=== PATIENT | female | born 1990 | race Two or more races ===

== ENCOUNTER 2024-08-07 17:27 | Emergency (ER) | payer MEDICAID, SELFPAY ==
[2024-08-07 17:28] VITALS: BMI 30.5
[2024-08-07 17:59] VITALS: BP 130/87; PULSE 60; RESP 18; TEMP 36.9; O2SAT 99
--- NOTE | 2024-08-07 18:03 | XR_ITS ---
Examination: Abdomen sonogram, Limited Date and time of exam: August 07, 2024 1959 hours INDICATIONS: Right upper abdominal pain radiating to the back Technique: Real-time stapleton scale transabdominal sonographic images of the upper abdomen obtained. Findings: Multiple gallstones Gallbladder wall is thickened 0.55 cm Common bile duct 0.3 cm no stones Pancreatic head 2.6 cm Liver 12.1 cm no focal liver lesions Normal hepatopedal portal venous flow Patent IVC IMPRESSION: Cholelithiasis, suspicious for cholecystitis, recommend HIDA scan or MRCP follow-up
[2024-08-07 18:35] LABS: Basophils % (Auto) 0 % (0-2.5); Eosinophils % (Auto) 0 % (0-10); Hematocrit 34.7 % (36.0-46.0); Hemoglobin 11.7 g/dL (12.0-16.0); Immature Granulocytes % (Auto) 0 % (0-0); Immature Granulocytes Auto 0.03 Thou/mm3 (0.00-0.00); Lymphocytes # (Auto) 1.2 Thou/mm3 (1.0-4.8); Lymphocytes % (Auto) 12 % (10-50); Mean Corpuscular HGB Conc 33.7 g/dl (31.0-37.0); Mean Corpuscular Hemoglobin 27.1 pg (25.0-35.0); Mean Corpuscular Volume 80 fL (80-100); Monocytes # (Auto) 0.4 Thou/mm3 (0.0-0.8); Monocytes % (Auto) 4 % (0-12); Neutrophils # (Auto) 8.5 Thou/mm3 (1.8-7.7); Neutrophils % (Auto) 83 % (37-80); Nucleated Red Blood Cell % 0 /100 WBC (0); Platelet Count 303 Thou/mm3 (140-440); RDW Standard Deviation 46.1 fL (36.4-46.3); Red Blood Count 4.32 Miln/mm3 (4.00-5.20); White Blood Count 10.2 Thou/mm3 (3.6-11.0)
[2024-08-07 18:45] LABS: Alanine Aminotransferase < 7 U/L (10-49); Albumin, Serum 4.5 gm/dL (3.5-5.0); Albumin/Globulin Ratio 1.6 (1.2-2.2); Alkaline Phosphatase 76 U/L (46-116); Anion Gap 11 (7-16); Aspartate Amino Transferase 16 U/L (0-34); BUN/Creatinine Ratio 14 Ratio (12-20); Bilirubin,Total 0.4 mg/dL (0.3-1.2); Blood Urea Nitrogen 10 mg/dL (9-23); Carbon Dioxide 22.1 mMol/L (20.0-31.0); Chloride 104 mMol/L (98-107); Creatinine (Component) 0.7 mg/dL (0.6-1.3); Estimated Creatinine Clearance 81.7 mL/min (>60); Globulin 2.9 gm/dL (2.3-3.5); Glucose 126 mg/dL (74-106); Lipase 39 U/L (12-53); Osmolality,Calculated 274 (275-295); Potassium 3.9 mMol/L (3.4-5.1); Sodium 137 mMol/L (136-145); Total Protein 7.4 gm/dL (5.7-8.2); eGFR > 60 See Note
[2024-08-07 18:47] LABS: Collection Type, Urine Clean Catch
[2024-08-07 18:57] LABS: Bilirubin,Urine Negative (Negative); Blood,Urine 2+ (Negative); Clarity,Urine Clear (Clear/Hazy); Color,Urine Lt-Yellow (Lt Yel-Yel); Culture Indicated,Urine Not Indicated; Glucose, Urine Negative (Negative); Ketones,Urine 4+ (Negative); Leukocyte Esterase,Urine Negative (Negative); Nitrite,Urine Negative (Negative); Protein,Urine Trace (Neg - Trace); RBC,Urine 32 /hpf (0-3); Specific Gravity,Urine 1.033 (1.001-1.035); Squamous Epithelial Cell,Urine 11 /hpf (0-5); Urobilinogen,Urine Negative mg/dL (0.0-1.0); WBC,Urine 2 /hpf (0-5)
[2024-08-07] MEDS: HYDROcodone/APAP 5/325 TABLET 1 TAB PO (19:07)
[2024-08-07] MEDS: METOCLOPRAMIDE 5 MG TABLET 10 MG PO (19:07)
[2024-08-07 19:16] LABS: HCG Qualitative,Urine Negative
--- NOTE | 2024-08-07 21:39 | EDNOTE_ITS ---
ED General RME/HPI General Chief complaint: Abdominal Pain Stated complaint: ABD PAIN RADIATING TO BACK Time Seen by Provider: 08/07/24 17:46 Arrival date/time: 08/07/24 17:27 CC: Right upper quadrant abdominal pain with radiation to the back HPI onset this afternoon but does have prior episodes in the past. The patient has been seen by PCP and has been started on famotidine for the same events. Patient denies nausea vomiting or diarrhea. No other complaints at this time. Related Data Previous Rx's ?Medication ?Instructions ?Recorded meloxicam 7.5 mg tablet 7.5 mg PO QDAY #10 tabs 07/20 ondansetron 4 mg disintegrating 4 mg PO Q8H #10 tabs 0 08/07/24 tablet Allergies Allergy/AdvReac Type Severity Reaction Status Date / Time No Known Allergies Allergy Verified 08/07/24 17:28 Review of Systems Review of Systems Narrative Review of Systems: GEN: No fever, no chills, no weight loss EYES: No discharge, no visual changes, no pain HEENT: No ear pain, no congestion, no sore throat PULM: No shortness of breath, no cough, no congestion CV: No chest pain, no dyspnea on exertion, no palpitations GI: No nausea, no vomiting, no diarrhea, + pain, no constipation : No frequency, no urgency, no dysuria MUSC/SKEL: No joint pain, no back pain SKIN: No rash PSYCH: No hallucinations, no depression HEME/LYMPH: No easy bleeding or bruising tendencies NEURO: No weakness, no headache Past Medical History Social History SMOKING STATUS: Never smoker ED Exam Narrative Physical exam: [General: Not in any acute distress Head normocephalic HEENT: Within acceptable limits Neck is supple nontender Chest equal chest rise nontender to palpation Respiratory: Clear to auscultation no wheezes crackles or rubs CV: Rate rhythm is regular no murmurs rubs or clicks Abdomen mild right upper quadrant abdominal pain, no reflexive guarding no rebound tenderness Back: No CVA tenderness no spinous process tenderness from cervical spine thoracic and lumbar spine Skin: Intact no petechiae rash induration ulceration or crepitus Extremities: Moving all extremity against resistance cap refill less than 2 seconds neurosensory intact Neuro: Awake alert oriented x3 Glascow coma 15 no focal deficits] Course Quality Measures none Orders Category Date Time Status US gall bladder Stat Exams 08/07/24 18:03 Completed CBC Stat Lab 08/07/24 18:12 Completed Comprehensive Metabolic Panel Stat Lab 08/07/24 18:12 Completed HCG Qualitative,Urine Stat Lab 08/07/24 18:38 Completed Lipase Stat Lab 08/07/24 18:12 Completed UA, C/S IF [Urinalysis, C/S if Indicated] Stat Lab 08/07/24 18:38 Completed HYDROcodone*/APAP 5/325 [Early 5/325] Med 08/07/24 18:03 Discontinued 1 tab PO X1 ONE Metoclopramide [Reglan] Med 08/07/24 18:03 Discontinued 10 mg PO X1 ONE Vital Signs Vital signs: Vital Signs Temperature 98.5 F 08/07/24 17:59 Pulse Rate 60 08/07/24 17:59 Respiratory Rate 18 08/07/24 17:59 Blood Pressure 130/87 H 08/07/24 17:59 Pulse Oximetry (%) 99 08/07/24 17:59 Oxygen Delivery Method Room Air 08/07/24 17:59 Discharge Plan Plan Patient Disposition: HOME (Self Care) Patient condition on transfer: Stable Prescriptions/Referrals Prescriptions/Med Rec: New ondansetron 4 mg tablet,disintegrating 4 mg PO Q8H Qty: 10 0RF meloxicam 7.5 mg tablet 7.5 mg PO QDAY Qty: 10 0RF Referrals: Kasi Gan MD [Primary Care Provider] - In 1 week Yaya Hernandez MD [Physician] - In 1 week Problem List Clinical Impression: Right upper quadrant abdominal pain, Cholelithiasis Patient/Caregiver Discharge Instructions Other Activity Instructions:: Avoid greasy spicy fatty foods avoid eating anything for 2 hours before you go to bed take the medicines including your famotidine for relief. Make sure you take the pain medicine before you go to bed at nighttime. If there is worsening of symptoms return the emergency room for reevaluation otherwise follow-up with your primary care provider and seek a referral for surgeon. Education Materials: What Are Gallstones, Treating Gallstones Print Language: Peruvian Stand Alone Forms: Bettie Award Info., Work/School Release, Patient Portal Info Letter PA/ORGANIZATIONAL RESEARCH CONSULTANT Supervising Physician PA/ORGANIZATIONAL RESEARCH CONSULTANT Supervising Physician: Edi Wood ENP [facility] Clinical Information Provided by patient and parent Medical Records Reviewed [facility] Meds/Rx Considered, not Ordered None Labs/Rad/Tests considered, not Ordered None EKG EKG not done Lab Interpretation Labs: interpreted by me Lab(s) interpretation(s): CBC shows no acute leukocytosis there is a mild anemia with a hemoglobin of 11.7 hematocrit of 34.7. No thrombocytopenia CMP shows no significant electrolyte imbalances other than a glucose of 126 no renal impairment there is no transaminitis or T. bili elevation lipase is normal Urine is negative with 4+ ketones 2+ blood no leukocyte Estrace and 11 squamous epithelial. Quantitative hCG is negative Imaging Imaging interpretation: interpreted by me Provider imaging interpretation(s): Cholelithiasis with mild gallbladder wall thickening. Radiology reports / interpretation(s): The patient has no transaminitis T. bili elevation or leukocytosis with cholelithiasis at this time I do not feel this is an acute cholecystitis.. Patient will be discharged with a mild amount of pain medicine she is already on the famotidine I will give you a mild nausea medicine. She is to switch to a bland diet no eat no food for 2 hours before bedtime, patient is also recommended follow-up with surgeon on an outpatient basis. This was discussed with both the patient and the mother who are in agreement with this plan. Medication Administration(s) none Medication Administration History Discontinued Medications Hydrocodone Bitart/Acetaminophen (Hydrocodone/Apap 5/325 Tablet) 1 tab PO X1 ONE Stop: 08/07/24 18:04 Last Admin: 08/07/24 19:07 Dose: 1 tab Documented By: Metoclopramide HCl (Metoclopramide 5 Mg Tablet) 10 mg PO X1 ONE Stop: 08/07/24 18:04 Last Admin: 08/07/24 19:07 Dose: 10 mg Documented By: Diagnosis Differential diagnosis: Cholelithiasis cholecystitis choledocholithiasis Dispositon Disposition: Discharge Home
[2024-08-07 21:56] VITALS: RESP 18
== END 2024-08-07 21:57 | disposition home or self-care (01) ==
PROVIDERS: Nurse Practitioner Primary Care; Emergency Provider Emergency Medicine; PCP Student in an Organized Health Care Education/Training Program
DX: K80.20 Calculus of gallbladder without cholecystitis without obstruction (principal)
CPT/HCPCS: 36415; 76705; 80053; 81001; 81025; 83690; 85025; 99284; A9270

== ENCOUNTER → 2024-11-16 | Outpatient (CLI) | payer MEDICAID, SELFPAY ==
--- NOTE | 2024-11-16 09:01 | XR_ITS ---
Examination: Abdomen sonogram, complete Date and time of exam: November 16, 2024 0915 hours INDICATIONS: Mid abdominal pain beginning 3 months ago. Technique: Multiple real-time grayscale transabdominal sonographic images of the abdomen have been obtained. Findings: Multiple gallstones Gallbladder is contracted gallbladder wall 0.41 cm Common bile duct 0.3 cm Pancreatic head 2.7 cm Aorta not enlarged. Liver 12.0 cm fatty infiltration Normal hepatopedal portal venous flow Patent IVC Right kidney 9.5 cm renal cortex 1.5 cm Left kidney 9.9 cm cortex 1.7 cm 11 mm mass lower pole left kidney, hyperechoic Moderate renal scar formation Spleen 9.1 cm IMPRESSION: Cholelithiasis, borderline thickening gallbladder wall, clinical correlation advised Consider HIDA scan or MRCP follow-up 11 mm mass lower pole left kidney, recommend CT scan abdomen pelvis post contrast follow-up to assess for angiomyolipoma involving the lower pole left kidney
== END | disposition home or self-care (01) ==
PROVIDERS: Referring Provider Student in an Organized Health Care Education/Training Program; Visit Provider Student in an Organized Health Care Education/Training Program
DX: K80.20 Calculus of gallbladder without cholecystitis without obstruction (principal); K82.8 Other specified diseases of gallbladder
CPT/HCPCS: 76700

== ENCOUNTER 2024-12-09 16:52 | Emergency (ER) | payer MEDICAID, SELFPAY ==
[2024-12-09 16:53] VITALS: BMI 25.1
[2024-12-09 17:17] VITALS: BP 115/78; PULSE 84; RESP 17; TEMP 37.1; O2SAT 99
--- NOTE | 2024-12-09 17:29 | PD.EDRME ---
Rapid Medical Screening Exam RME Arrival date/time: 12/09/24 16:52 Chief Complaint: Abdominal Pain Vital signs: Vital Signs Temperature 98.7 F 12/09/24 17:17 Pulse Rate 84 12/09/24 17:17 Respiratory Rate 17 12/09/24 17:17 Blood Pressure 115/78 12/09/24 17:17 Pulse Oximetry (%) 99 12/09/24 17:17 Oxygen Delivery Method Room Air 12/09/24 17:17 RME Narrative: Epigastric/RUQ pain since July with pain episode today. Hx of gallstones, awaiting surgery referral. 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
--- NOTE | 2024-12-09 17:32 | XR_ITS ---
Examination: Abdomen sonogram, Limited Date and time of exam: December 09, 2024 1846 hrs. Indications: Epigastric pain radiating to the back today Technique: Real-time stapleton scale transabdominal sonographic images of the upper abdomen obtained. Findings: Multiple gallstones Gallbladder wall 0.4 cm with edema Common bile duct 0.3 cm Pancreas obscured by bowel gas Liver 11.9 cm smooth contour Normal hepatopedal portal venous flow Patent IVC Impression: Recommend HIDA scan or MRCP follow-up to confirm acute calculus cholecystitis and
[2024-12-09] MEDS: HYDROcodone/APAP 7.5/325 TABLET 1 TAB PO (17:49)
[2024-12-09 18:08] LABS: Collection Type, Urine Clean Catch; WBC,Urine 0 /hpf (0-5)
[2024-12-09 18:14] LABS: Basophils # (Auto) 0.0 Thou/mm3 (0.0-0.2); Basophils % (Auto) 0 % (0-2.5); Eosinophils # (Auto) 0.1 Thou/mm3 (0.0-0.5); Eosinophils % (Auto) 1 % (0-10); Hematocrit 35.9 % (36.0-46.0); Hemoglobin 11.7 g/dL (12.0-16.0); Immature Granulocytes Auto 0.04 Thou/mm3 (0.00-0.00); Lymphocytes # (Auto) 1.5 Thou/mm3 (1.0-4.8); Lymphocytes % (Auto) 14 % (10-50); Mean Corpuscular HGB Conc 32.6 g/dl (31.0-37.0); Mean Corpuscular Hemoglobin 28.1 pg (25.0-35.0); Mean Corpuscular Volume 86 fL (80-100); Monocytes # (Auto) 0.8 Thou/mm3 (0.0-0.8); Monocytes % (Auto) 7 % (0-12); Neutrophils # (Auto) 8.2 Thou/mm3 (1.8-7.7); Neutrophils % (Auto) 77 % (37-80); Nucleated Red Blood Cell # 0.00 Thou/mm3 (0.00-0.00); Nucleated Red Blood Cell % 0 /100 WBC (0); Platelet Count 323 Thou/mm3 (140-440); RDW Standard Deviation 49.0 fL (36.4-46.3); Red Blood Count 4.17 Miln/mm3 (4.00-5.20); White Blood Count 10.7 Thou/mm3 (3.6-11.0)
[2024-12-09 18:27] LABS: Amorphous Crystals,Urine Present (Absent); Bilirubin,Urine Negative (Negative); Blood,Urine Negative (Negative); Color,Urine Lt-Yellow (Lt Yel-Yel); Glucose, Urine Negative (Negative); Ketones,Urine Negative (Negative); Leukocyte Esterase,Urine Negative (Negative); Nitrite,Urine Negative (Negative); PH,Urine 8.5 (5.0-7.0); Protein,Urine Trace (Neg - Trace); RBC,Urine 2 /hpf (0-3); Specific Gravity,Urine 1.017 (1.001-1.035); Squamous Epithelial Cell,Urine 10 /hpf (0-5); Urobilinogen,Urine Negative mg/dL (0.0-1.0)
[2024-12-09 18:32] LABS: Alanine Aminotransferase 79 U/L (10-49); Albumin, Serum 4.5 gm/dL (3.5-5.0); Albumin/Globulin Ratio 1.6 (1.2-2.2); Alkaline Phosphatase 92 U/L (46-116); Amylase 73 U/L (30-118); Anion Gap 9 (7-16); Aspartate Amino Transferase 200 U/L (0-34); BUN/Creatinine Ratio 13 Ratio (12-20); Bilirubin,Total 0.5 mg/dL (0.3-1.2); Blood Urea Nitrogen 9 mg/dL (9-23); Calcium 9.1 mg/dL (8.3-10.6); Calcium (Corrected) 9.1 mg/dL (8.5-10.1); Carbon Dioxide 26.3 mMol/L (20.0-31.0); Chloride 107 mMol/L (98-107); Creatinine (Component) 0.7 mg/dL (0.6-1.3); Estimated Creatinine Clearance 79.8 mL/min (>60); Globulin 2.8 gm/dL (2.3-3.5); Glucose 102 mg/dL (74-106); Osmolality,Calculated 281 (275-295); Potassium 3.8 mMol/L (3.4-5.1); Sodium 142 mMol/L (136-145); Total Protein 7.3 gm/dL (5.7-8.2); eGFR > 60 See Note
--- NOTE | 2024-12-09 18:38 | PD.EDABDPN ---
ED Abdominal Pain RME/HPI General Chief Complaint: Abdominal Pain Stated complaint: ABD PAIN RADIATES TO BACK TODAY Time seen by provider: 12/09/24 18:10 Arrival date/time: 12/09/24 16:52 RME / HPI RME / HPI narrative: Epigastric/RUQ pain since July with pain episode today. Hx of gallstones, awaiting surgery referral. 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 Ms. Berger is a 34-year-old female with past medical history of cholelithiasis, presented to [facility] emergency department with a chief complaint of epigastric and right upper quadrant pain. Patient reported that her pain started in July and she has been having multiple episodes of pain for which she uses ibuprofen to control her pain, she reported having similar episode likely related to her gallstones today and decided to come to emergency department for evaluation, patient reports that she is scheduled to see Dr. Hernandez outpatient however she is pending further imaging workup. Related Data Previous Rx's ?Medication ?Instructions ?Recorded meloxicam 7.5 mg tablet 7.5 mg PO QDAY #10 tabs 08/07/24 ondansetron 4 mg disintegrating 4 mg PO Q8H #10 tabs 08/07/24 tablet Allergies Allergy/AdvReac Type Severity Reaction Status Date / Time No Known Allergies Allergy Verified 12/09/24 16:57 Review of Systems Review of Systems Systems Reviewed: All systems reviewed, normal except as documented Past Medical History Social History SMOKING STATUS: Never smoker ED Exam Narrative Physical exam: Physical Exam General: Awake and in no acute distress. Conversational and non-toxic appearing. HEENT: Normocephalic, atraumatic, mucous membranes moist. Heart: Regular rate and rhythm, no murmurs. Lungs: Clear to auscultation with no wheezing or crackles. Abdomen: Soft, nondistended, mild epigastric tenderness, positive bowel sounds. ?No guarding or rebound tenderness. Neurologic: Alert and oriented x3, no gross neurological deficit, and patient able to move all 4 extremities. Extremities: No edema. Skin: No rash or ecchymoses. Course Quality Measures none Orders Category Date Time Status US gall bladder Stat Exams 12/09/24 17:32 Completed Amylase Stat Lab 12/09/24 17:53 Completed CBC Stat Lab 12/09/24 17:53 Completed CMP [Comprehensive Metabolic Panel] Stat Lab 12/09/24 17:53 Completed HCG Qualitative,Urine Stat Lab 12/09/24 17:35 Completed UA [Urinalysis] Stat Lab 12/09/24 17:35 Completed Famotidine [Pepcid] Med 12/09/24 19:32 Discontinued 40 mg PO X1 ONE HYDROcodone*/APAP 7.5/325 [Winton 7.5/325] Med 12/09/24 17:32 Discontinued 1 tab PO X1 ONE Lidocaine 2% Viscous [Xylocaine 2% Viscous] Med 12/09/24 19:32 Discontinued 15 ml PO X1 ONE mg Hyd/Al Hyd/Laure Susp [Maalox Susp] Med 12/09/24 19:32 Discontinued 30 ml PO X1 ONE Vital Signs Vital signs: Vital Signs Temperature 98.7 F 12/09/24 17:17 Pulse Rate 84 12/09/24 17:17 Respiratory Rate 17 12/09/24 17:17 Blood Pressure 115/78 12/09/24 17:17 Pulse Oximetry (%) 99 12/09/24 17:17 Oxygen Delivery Method Room Air 12/09/24 17:17 Abdominal Pain [facility] Narrative [facility] Narrative:: #Cholelithiasis #Dyspepsia 34-year-old female with past medical history of gallstones presented with flare up of pain, patient has biliary colic since July and is scheduled to see Dr. Hernandez outpatient patient. Workup: CBC: WBC 10.7 hemoglobin 11.7, platelet count 323 CMP: Sodium 142 potassium 3.8 chloride 107 bicarb 26.3 anion gap 9 BUN 9, creatinine 0.7, GFR greater than 60, glucose 102 osmolality 281 corrected calcium 9.1 total bilirubin 0.5 AST 200 ALT 79 alk phos 92 total protein 7.3 albumin 4.5 amylase 73 Urinalysis shows amorphous crystals, contaminated sample has 10 squamous epithelial cells Gallbladder ultrasound shows multiple gallstones gallbladder wall 0.4 cm with edema CBD 0.3 pancreas obscured by bowel gas Patient was given Winton 1 tab p.o. x 1, famotidine 40 mg p.o. x 1, Maalox 30 mL p.o. x 1 and viscous lidocaine p.o. 15 mL Patient reports her pain has improved, case discussed with Dr. Hernandez who recommended outpatient follow-up with him. Patient will be discharged for outpatient follow-up. Case discussed with Attending Physician Dr. Fay Contreras MD Internal Medicine PGY-2 Disclaimer: This note was dictated by speech recognition. Minor errors in vice president of development may be present due to voice recognition software. Patient data External records reviewed:: [facility] previous records Clinical information provided by:: patient and family Social determinants that could affect healthcare access:: none Patient has the following chronic illnesses:: Cholelithiasis How is presenting disease/condition affected by chronic disease/condition?: exacerbated by Evaluation data The following diagnostics were reviewed and interpreted by me:: lab results and radiology exam(s) Lab and/or radiology exams considered but not ordered:: None Interpretation Summary: CBC: WBC 10.7 hemoglobin 11.7, platelet count 323 CMP: Sodium 142 potassium 3.8 chloride 107 bicarb 26.3 anion gap 9 BUN 9, creatinine 0.7, GFR greater than 60, glucose 102 osmolality 281 corrected calcium 9.1 total bilirubin 0.5 AST 200 ALT 79 alk phos 92 total protein 7.3 albumin 4.5 amylase 73 Urinalysis shows amorphous crystals, contaminated sample has 10 squamous epithelial cells Gallbladder ultrasound shows multiple gallstones gallbladder wall 0.4 cm with edema CBD 0.3 pancreas obscured by bowel gas Medications / Prescriptions Medications or Prescriptions considered but not ordered:: None Medication administrations:: Medication Administration History Discontinued Medications Hydrocodone Bitart/Acetaminophen (Hydrocodone/Apap 7.5/325 Tablet) 1 tab PO X1 ONE Stop: 12/09/24 17:33 Last Admin: 12/09/24 17:49 Dose: 1 tab Documented By: CN Al Hydrox/Mg Hydrox/Simethicone (Mg Hyd/Al Hyd/Laure (Maalox Reg) Susp 30 Ml Udc) 30 ml PO X1 ONE Stop: 12/09/24 19:33 Last Admin: 12/09/24 20:22 Dose: 30 ml Documented By: Famotidine (Famotidine 20 Mg Tablet) 40 mg PO X1 ONE Stop: 12/09/24 19:33 Last Admin: 12/09/24 20:22 Dose: 40 mg Documented By: Lidocaine HCl (Lidocaine Viscous 2% 15 Ml Udc) 15 ml PO X1 ONE Stop: 12/09/24 19:33 Last Admin: 12/09/24 20:22 Dose: 15 ml Documented By: As Above Consultations Consultation(s) initiated? (list below): Yes Consultation #1 (Physician, Specialty, Details): Dr Hernandez, Gen Surgery Diagnosis Differential diagnosis abdominal pain: abdominal pain, constipation, gastroenteritis and other (Cholelithiasis) Most likely diagnosis given after review of the tests above:: Cholelithiasis, Dyspepsia Admission Indicated Admission indicated?: not indicated Admission Request Was there a request for admission?: No Disposition Plan Disposition Plan: Discharge Discharge Attestation Discharge Attestation: The patient and all family members were given an opportunity to ask questions and understood the discharge instructions. Discharge instructions specifically effects, indications for sooner follow up or return to the emergency department, and the expected course of current diagnosis. Patient condition: Stable Discharge Plan Plan Patient Disposition: HOME (Self Care) Patient condition on transfer: Stable Prescriptions/Referrals Prescriptions/Med Rec: No Action ondansetron 4 mg tablet,disintegrating 4 mg PO Q8H Qty: 10 0RF meloxicam 7.5 mg tablet 7.5 mg PO QDAY Qty: 10 0RF Referrals: Yaya Hernandez MD [Physician, General Surgery] - In 1 week Elena Monaco FNP [Primary Care Provider] - In 1 week Problem List Clinical Impression: Cholelithiases Patient/Caregiver Discharge Instructions Discharge Activity: activity as tolerated Education Materials: What Are Gallstones Additional Instructions: - You were seen in the emergency department today for abdominal pain, we did a gallbladder ultrasound which showed gallstones with some bladder wall edema you do have mild liver function enzyme elevation, I discussed these findings with Dr. Hernandez the surgeon you are referred to he recommends that you follow-up in his office outpatient. Please call his office to obtain an appointment. - Use [id number] extra strength Tylenol and ibuprofen 400 mg take them at the same time to manage her pain. - Please return to the emergency department if your pain worsens you develop a fever or you have uncontrollable nausea and vomiting - Follow-up with your primary care physician to discuss all your lab and radiology findings. - Your labs also otherwise showed that you have anemia - Your urine analysis is negative for urinary tract infection Print Language: Greek Stand Alone Forms: Bettie Award Info., Patient Portal Info Letter
[2024-12-09 18:42] LABS: HCG Qualitative,Urine Negative
[2024-12-09 18:43] LABS: Clarity,Urine Turbid (Clear/Hazy)
[2024-12-09] MEDS: FAMOTIDINE 20 MG TABLET 40 MG PO (20:22)
[2024-12-09] MEDS: MG HYD/AL HYD/SIME (Maalox Reg) SUSP 30 ML UDC PO (20:22)
[2024-12-09] MEDS: LIDOCAINE VISCOUS 2% 15 ML UDC PO (20:22)
[2024-12-09 20:59] VITALS: RESP 16
== END 2024-12-09 21:01 | disposition home or self-care (01) ==
PROVIDERS: Physician Assistant; Emergency Provider Emergency Medicine; PCP Student in an Organized Health Care Education/Training Program
DX: K80.20 Calculus of gallbladder without cholecystitis without obstruction (principal)
CPT/HCPCS: 36415; 76705; 80053; 81001; 81025; 82150; 85025; 99283; J3490; A9270

== ENCOUNTER 2024-12-25 09:35 | Day surgery (SDC) | payer MEDICAID, SELFPAY ==
[2024-12-24 07:03] VITALS: BMI 24.1
[2024-12-24 09:06] LABS: Basophils # (Auto) 0.0 Thou/mm3 (0.0-0.2); Basophils % (Auto) 1 % (0-2.5); Eosinophils # (Auto) 0.2 Thou/mm3 (0.0-0.5); Eosinophils % (Auto) 3 % (0-10); Hematocrit 36.0 % (36.0-46.0); Hemoglobin 11.5 g/dL (12.0-16.0); Immature Granulocytes Auto 0.01 Thou/mm3 (0.00-0.00); Lymphocytes # (Auto) 2.0 Thou/mm3 (1.0-4.8); Lymphocytes % (Auto) 39 % (10-50); Mean Corpuscular HGB Conc 31.9 g/dl (31.0-37.0); Mean Corpuscular Hemoglobin 27.6 pg (25.0-35.0); Mean Corpuscular Volume 87 fL (80-100); Monocytes # (Auto) 0.4 Thou/mm3 (0.0-0.8); Monocytes % (Auto) 7 % (0-12); Neutrophils # (Auto) 2.6 Thou/mm3 (1.8-7.7); Neutrophils % (Auto) 50 % (37-80); Nucleated Red Blood Cell # 0.00 Thou/mm3 (0.00-0.00); Nucleated Red Blood Cell % 0 /100 WBC (0); Platelet Count 308 Thou/mm3 (140-440); RDW Standard Deviation 48.3 fL (36.4-46.3); Red Blood Count 4.16 Miln/mm3 (4.00-5.20); White Blood Count 5.2 Thou/mm3 (3.6-11.0)
[2024-12-24 09:15] LABS: HCG,Qualitative Serum Negative
[2024-12-24 09:19] LABS: Alanine Aminotransferase 17 U/L (10-49); Albumin, Serum 4.7 gm/dL (3.5-5.0); Albumin/Globulin Ratio 1.7 (1.2-2.2); Alkaline Phosphatase 86 U/L (46-116); Anion Gap 11 (7-16); Aspartate Amino Transferase 23 U/L (0-34); BUN/Creatinine Ratio 13 Ratio (12-20); Bilirubin,Total 0.4 mg/dL (0.3-1.2); Blood Urea Nitrogen 10 mg/dL (9-23); Calcium 9.4 mg/dL (8.3-10.6); Calcium (Corrected) 9.4 mg/dL (8.5-10.1); Carbon Dioxide 27.5 mMol/L (20.0-31.0); Chloride 106 mMol/L (98-107); Creatinine (Component) 0.8 mg/dL (0.6-1.3); Estimated Creatinine Clearance 71.9 mL/min (>60); Globulin 2.7 gm/dL (2.3-3.5); Glucose 88 mg/dL (74-106); Osmolality,Calculated 284 (275-295); Potassium 3.7 mMol/L (3.4-5.1); Sodium 144 mMol/L (136-145); Total Protein 7.4 gm/dL (5.7-8.2); eGFR > 60 See Note
[2024-12-25] VITALS (8 sets, daily range): BP systolic 109–123; BP diastolic 68–85; PULSE 64–90; RESP 16–21; TEMP 36.5–37.2; O2SAT 96–100; BMI 24.0
--- NOTE | 2024-12-25 10:20 | CHAP ---
Patient was with her family member and very nervous as it was her first surgery. I spoke with her and sought to comfort and encourage her. Then I prayed with her and for her.
--- NOTE | 2024-12-25 11:45 | SUR.PHASEI ---
pt arrived to PACU via gurney with oral airway present which was removed by Florin KO upon arrival, breathing unlabored, dressing to abdomen clean, dry, and intact, report from Talisha PISANO, Florin KO, and Dr Price
--- NOTE | 2024-12-25 11:51 | PD.SUROPNT ---
Date of Procedure 12/25/24 Pre Op Diagnosis Symptomatic cholelithiasis Post Op Diagnosis Cholelithiasis with cholecystitis Procedure Laparoscopic cholecystectomy Findings Mildly distended gallbladder with gallbladder wall thickening and large gallstone Procedure Description Patient was brought into the operating room in supine position. After administration of general endotracheal anesthesia abdomen was prepped and draped in standard surgical manner. A Veress needle was inserted through the umbilicus and pneumoperitoneum was obtained up to 15 mmHg. The Veress needle was then removed, a 5 mm infraumbilical incision was made and the 5mm trocar was inserted. Laparoscopic camera was placed. Under direct visualization a laparoscopic camera a 10 mm trocar was placed in subxiphoid and two 5 mm trocars placed in right upper quadrant. The gallbladder was identified and was noted to be mildly distended with gallbladder wall thickening and a large gallstone. It was retracted cephalad and laterally. Dissection started near the infundibulum of gallbladder where cystic duct and gallbladder junction clearly identified. The cystic duct was circumferentially dissected off the peritoneum and surrounding inflammatory tissue. The critical view of safety was clearly demonstrated. Cystic duct was then divided between 2 endoclips proximally and one distally. The cystic artery was similarly dissected and divided. The gallbladder was then from the liver bed using electrocautery. The gallbladder was then placed inside an Endo Catch and removed from the abdomen utilizing subxiphoid trocar site. The area was copiously and thoroughly washed and irrigated, all the fluid was suctioned and the suction fluid returned clear. Hemostasis achieved using electrocautery. Endoclips noted be in place and intact without any bleeding or any leakage. Hemostasis was adequate and satisfactory. The subxiphoid trocar sites fascial defect was closed with 0 Vicryl using Endo Closure device. Instruments and trocars removed, pneumoperitoneum was evacuated and the incisions closed with 4-0 Monocryl in subcuticular fashion. Instrument needle and sponge counts were all reported to be correct X2. Patient tolerated the procedure well, was extubated, breathing spontaneously and without difficulty and was transferred to postanesthesia care in stable condition. Anesthesia GETA and local Pathology / specimen Other (Gallbladder and contents) Estimated Blood Loss 10 Condition Stable Disposition PACU Surgeon Yaya Hernandez MD Surgical Staff Operation Date: 12/25/24 12:15 Case Staff Anesthesiologist: Bartolome Price RN First Assistant: Yuliet Lockwood
[2024-12-25] MEDS: fentaNYL CIT INJ 50 mCg/ML AMP 2ML 25 MCG IVP (12:08)
--- NOTE | 2024-12-25 12:15 | SUR.PHASEI ---
pt tolerating ice chips without difficulty swallowing or n/v
--- NOTE | 2024-12-25 12:20 | SUR.PHASEII ---
report to Ltous Robles RN
--- NOTE | 2024-12-25 13:01 | SUR.PHASEII ---
1301 Patient meets discharge criteria from recovery, awake and alert, breathing unlabored, vital signs stable, denies pain at rest, discomfort with movement, dressing intact; no bleeding noted, ate a jello and drinking apple juice; denies nausea, assisted with dressing into her clothing by her mother, discharge instructions given to patient and patient mother, mother signed discharge instructions, patient given all her belongings prior to discharge, transported via wheelchair and left in a private vehicle.
== END 2024-12-25 13:01 | disposition home or self-care (01) ==
PROVIDERS: PCP Student in an Organized Health Care Education/Training Program; Referring Provider Surgery; Visit Provider Surgery
PROC: 0FT44ZZ Resection of Gallbladder, Percutaneous Endoscopic Approach (ICD-10-PCS; CPT 47562; principal; 2024-12-25 12:00)
DX: K80.10 Calculus of gallbladder with chronic cholecystitis without obstruction (principal)
CPT/HCPCS: 47562; 36415; 80053; 84703; 85025; A4217; A4649; J0131; J0694; J1100; J2250; J2371; J2405; J2704; J2765; J3010; J3490

== ENCOUNTER → 2025-01-31 | Outpatient (CLI) | payer MEDICAID, SELFPAY ==
[2025-01-30 09:26] LABS: HCG Qualitative,Urine Negative
--- NOTE | 2025-01-31 14:00 | XR_ITS ---
Examination: CT abdomen with intravenous contrast CT pelvis with intravenous contrast 2-D coronal reconstructions 2-D sagittal reconstructions Date and time of exam: January 31, 2025, 1415 hours, comparison May 07, 2022 INDICATIONS: Mid abdominal pain beginning 1 month ago. CTDI: vol (mGy) 5.8 DLP: (mGycm) 311 Technique: Multiple axial sections of the abdomen and pelvis have been obtained. 64 slice high-resolution scanner used. 3 mm axial sections have been obtained, post intravenous injection 60 cc [id number] 2-D sagittal, coronal reconstructions obtained. Low dose protocols were performed. One or more of the following dose reduction techniques were used; automated exposure control, adjustment of the mA and/or KV according to patient size, use of iterative reconstruction technique. Findings: 8 mm posterior right lobe liver cyst No biliary tract dilatation Absent gallbladder. Spleen not enlarged No pancreatic or adrenal mass Solid tumor mass anterior left kidney, 12 mm, axial image 79 Aorta normal size 15 mm fat-containing umbilical hernia Normal appendix No pelvic mass Bladder intact The Yariel structures are intact IMPRESSION: Solid tumor mass anterior margin left kidney, 12 mm, differential would include renal cell carcinoma Recommend MRI abdomen kidneys follow-up pre and post contrast for staging
== END | disposition home or self-care (01) ==
LOC: SCAT 13:55
PROVIDERS: PCP Student in an Organized Health Care Education/Training Program; Referring Provider Internal Medicine; Visit Provider Internal Medicine
DX: N28.89 Other specified disorders of kidney and ureter (principal); Z32.00 Encounter for pregnancy test, result unknown
CPT/HCPCS: 74177; 81025; A4649; Q9967